=== PATIENT | female | born 1985 | race African-American/Black ===

== ENCOUNTER 2020-11-08 12:23 | Emergency (ER) | payer OTHER ==
[~2020-11-08] VITALS: Ht 165.1 cm; Wt 113.0 kg
[2020-11-08] MEDS ORDERED: KETOROLAC 30MG/ML VIAL IM ONE (13:30)
[2020-11-08 13:59] VITALS: BP 115/76
[2020-11-08] MEDS ORDERED: IBUP-2030 MT ×3 (14:15→15:01)
[2020-11-08] MEDS ORDERED: T3 PO ×3 (14:15→15:01)
[2020-11-08] MEDS ORDERED: HYDR-4001 MT (15:01)
== END 2020-11-08 15:18 | disposition home or self-care (01) ==
LOC: ER 12:48
DX: S80.01XA Contusion of right knee, initial encounter (principal); W18.39XA Other fall on same level, initial encounter; Y93.89 Activity, other specified; Y92.89 Other specified places as the place of occurrence of the external cause; Y99.8 Other external cause status; Z98.890 Other specified postprocedural states
CPT/HCPCS: 73562; 96372; 99283; J1885

== ENCOUNTER 2021-07-29 03:01 | Observation (INO) | payer OTHER ==
[~2021-07-29] VITALS: Ht 166.4 cm; Wt 117.9 kg
[~2021-07-29 03:01] MED LIST: HYDR-4001 MT; IBUP-2030 MT; T3 PO
[2021-07-29] MEDS ORDERED: LACTATED RINGERS 1,000 ML IV ONE (04:15)
[2021-07-29] MEDS ORDERED: LACTATED RINGERS 1,000 ML IV SCH (04:15)
[2021-07-29 05:52] LABS: BASOPHILS % 0.2 % (0.0-2.0); EOSINOPHILS % 0.9 % (0.0-5.0); HEMATOCRIT. 31.7 % (36.0-48.0); HEMOGLOBIN. 10.5 g/dL (12.0-16.0); LYMPHOCYTES % 15.4 % (20.0-50.0); MEAN CORPUSCULAR HEMOGLOBIN 24.6 pg (28.0-32.0); MEAN CORPUSCULAR VOLUME 74.5 fL (81.0-99.0); MEAN PLATELET VOLUME 9.2 fl (7.4-10.4); MONOCYTES % 6.5 % (2.0-8.0); PLATELET 168 x1000/uL (130-400); RED BLOOD CELL COUNT 4.25 mill/uL (4.2-5.4); RED CELL DISTRIBUTION WIDTH 14.7 % (11.6-14.6)
[2021-07-29 06:13] LABS: CLARITY URINE CLOUDY (CLEAR); COLOR URINE YELLOW (YELLOW); KETONES URINE NEGATIVE (NEGATIVE); LEUKOCYTE ESTERASE URINE 1+ (NEGATIVE); NITRITE URINE NEGATIVE (NEGATIVE); OCCULT BLOOD URINE 3+ (NEGATIVE); PH URINE 6.5 (4.5-8.0); PROTEIN URINE TRACE (NEGATIVE); SPECIFIC GRAVITY URINE 1.017 (1.005-1.030); UROBILINOGEN URINE 0.2 E.U./dL (0.2-1.0)
== END 2021-07-29 08:00 | disposition home or self-care (01) ==
LOC: 8 EST LDRP 03:01
PROVIDERS: ADMIT Obstetrics & Gynecology; ATTEND Obstetrics & Gynecology
DX: O46.93 Antepartum hemorrhage, unspecified, third trimester (principal); Z3A.29 29 weeks gestation of pregnancy
CPT/HCPCS: 36415; 59025; 76805; 76818; 81003; 85025; 96360; 96361; G0378; 99281

== ENCOUNTER 2024-04-25 10:59 | Emergency (ER) | payer OTHER ==
[~2024-04-25] VITALS: Ht 165.1 cm; Wt 116.0 kg
[2024-04-25 11:06] VITALS: O2SAT 100
[2024-04-25] MEDS: TETANUS, DIPHTHERIA, PERTUSSIS VAC/PF 0.5ML (>10YR OLD) IM ONE (11:26)
[2024-04-25 11:32] VITALS: BP 122/64; PULSE 89; RESP 16; TEMP 36.7; O2SAT 100
== END 2024-04-25 11:36 | disposition home or self-care (01) ==
LOC: ER 10:59
DX: S61.210A Laceration without foreign body of right index finger without damage to nail, initial encounter (principal); Z79.899 Other long term (current) drug therapy; Z68.41 Body mass index [BMI] 40.0-44.9, adult; W26.0XXA Contact with knife, initial encounter; Y93.89 Activity, other specified; Y92.89 Other specified places as the place of occurrence of the external cause; Y99.8 Other external cause status
CPT/HCPCS: 12002; 90471; 90715; 99283

== ENCOUNTER 2024-09-30 22:21 | Emergency (ER) | payer MEDICAID, OTHER ==
[~2024-09-30] VITALS: Ht 170.2 cm; Wt 99.0 kg
[2024-09-30 22:29] VITALS: O2SAT 100
[2024-09-30 22:53] VITALS: BP 130/78; PULSE 79; RESP 18; TEMP 37.1; O2SAT 99
[2024-09-30 23:23] LABS: BASOPHILS % 0.3 % (0.0-2.0); EOSINOPHILS % 2.8 % (0.0-5.0); HEMATOCRIT. 24.4 % (36.0-48.0); HEMOGLOBIN. 7.3 g/dL (12.0-16.0); LYMPHOCYTES % 28.1 % (20.0-50.0); MEAN PLATELET VOLUME 8.1 fl (7.4-10.4); MONOCYTES % 5.1 % (2.0-8.0); NEUTROPHILS % 63.7 % (40.0-76.0); PLATELET 242 x1000/uL (130-400); RED BLOOD CELL COUNT 3.95 mill/uL (4.2-5.4); RED CELL DISTRIBUTION WIDTH 18.5 % (11.6-14.6)
[2024-09-30 23:35] LABS: CREATININE 0.8 mg/dL (0.6-1.0); UREA NITROGEN BLOOD 13 mg/dL (9-23)
[2024-09-30 23:36] LABS: ETHANOL BLOOD 119 mg/dL (<10)
[2024-09-30 23:37] LABS: ADD RBC MORPHOLOGY YES; ASPARTATE AMINOTRANSFERASE 12 IU/L (<34); BILIRUBIN DIRECT < 0.1 mg/dL (<=3.0); BILIRUBIN TOTAL 0.2 mg/dL (0.1-1.0); PROTEIN TOTAL 6.9 g/dL (6.0-8.3)
[2024-10-01 00:36] LABS: HCG SCREEN NEGATIVE
[2024-10-01] MEDS: VISCOUS LIDOCAINE 2% 15 ML UDC MM ONE (02:07)
[2024-10-01] MEDS: MAGNESIUM/ALUMINUM HYDROXIDE/SIMETHICONE 30ML UDC PO ONE (02:07)
[2024-10-01 05:32] LABS: PLATELET ESTIMATE NORMAL
== END 2024-10-01 02:13 | disposition home or self-care (01) ==
LOC: ER 22:21 → CMPBEDREQ 10-02 08:31
DX: R09.A2 Foreign body sensation, throat (principal); F10.129 Alcohol abuse with intoxication, unspecified; Y90.9 Presence of alcohol in blood, level not specified
CPT/HCPCS: 36415; 70360; 71045; 80048; 80076; 80320; 84703; 85025; 99284; A4606; G0480